=== PATIENT | male | born 2000 | race African-American/Black ===

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

== ENCOUNTER 2020-03-16 09:48 | Day surgery (SDC) | payer MEDICAID ==
[~2020-03-16 09:48] MED LIST: PROPOFOL INJ 200 MG/20 ML VIAL IV ONE
--- NOTE | 2020-03-16 11:04 | Operative Report ---
Operative Report DATE OF SURGERY: 03/16/20 Operative Report: The risk, benefits and alternatives of the procedure including the risk of bleeding, perforation requiring surgery have been explained to the patient in detail and informed consent has been obtained. Patient was placed in left, lateral decubital position. Timeout was called. Propofol medication is administered. Rectal examination is done which did not reveal any masses, tears or fissures. An Olympus videoscope was introduced into the patient's rectum. Scope was then carefully advanced all the way to the cecum. Cecum was identified by the usual anatomical landmarks including the ileocecal valve as well as the appendiceal office. Photodocumentation is obtained. Scope was then sequentially pulled back via the various segments of the colon including the ascending colon, hepatic flexure, transverse colon, splenic flexure, descending colon finding to the rectosigmoid portions of the colon. Retroflexion maneuvers performed. PREOPERATIVE DIAGNOSIS: Change of bowel habits POSTOPERATIVE DIAGNOSIS: Terminal ileum biopsy rule out Crohn's disease OPERATION: Colonoscopy with biopsy SURGEON: JOSELYN CROWELL ANESTHESIA: LMAC TISSUE REMOVED OR ALTERED: As noted above. COMPLICATIONS: None. ESTIMATED BLOOD LOSS: None. INTRAOPERATIVE FINDINGS: As noted above. PROCEDURE: Patient tolerated the procedure well. No immediate postprocedure complications are noted. Patient is discharged in good condition. Discharge date 03/16/2020. Discharge diet: Regular. Discharge activity: Regular. 2 to 3-week follow-up to discuss findings. Patient is instructed to call the office or proceed to the emergency room should there be any further problems or questions. Wait on the pathology.
[2020-03-16 11:27] VITALS: BP 113/66
== END 2020-03-16 11:35 | disposition home or self-care (01) ==
LOC: END 09:48
PROVIDERS: ATTEND Internal Medicine Gastroenterology
DX: K50.00 Crohn's disease of small intestine without complications (principal); D57.3 Sickle-cell trait; Z20.828 Contact with and (suspected) exposure to other viral communicable diseases
CPT/HCPCS: 45380; 88305; J2704